=== PATIENT | male | born 1980 | race Caucasian/White ===

== ENCOUNTER 2023-07-14 14:30 | Outpatient (CLI) | payer BC, SELFPAY ==
--- NOTE | 2023-07-14 14:45 | US_ITS ---
FINAL REPORT TECHNIQUE: Sonographic images of the testicles and scrotum were obtained in the longitudinal and transverse planes. CLINICAL HISTORY: TESTICULAR PAIN COMPARISON: None FINDINGS: The right testicle measures 4.4 centimeters. There is no intratesticular mass. There is an image labeled lower testicle on the right, in which there is an echogenic focus adjacent to the inferior right testicle that may represent enlargement of the tail of the epididymis. Microcalcifications are present and there is a small hydrocele on the right side. A varicocele is present in the right scrotum. The left testicle measures 3.8 centimeters. There is no intratesticular mass. The epididymis is within normal limits. A varicocele is present in the left scrotum. Microlithiasis is present in the left testicle as well. Color imaging reveals no evidence of testicular torsion. IMPRESSION: Bilateral varicoceles are present. Microcalcifications in the testicles are present as well. A small hydrocele is present on the right side. There is an echogenic focus labeled as adjacent to the inferior right testicle, that may represent enlargement of the tail of the epididymis. Follow-up ultrasound might be helpful for further evaluation. No evidence of testicular torsion is seen. Reviewed, Interpreted and Dictated by Oscar Inman III, MD Transcribed by Jacinda lAamo Authenticated and [facility]
== END 2023-07-14 23:59 ==
PROVIDERS: Visit Provider Nurse Practitioner
DX: N50.819 Testicular pain, unspecified (principal)
CPT/HCPCS: 76870